=== PATIENT | male | born 1995 | race African-American/Black ===

== ENCOUNTER 2017-08-04 01:05 | Emergency (ER) | payer SELFPAY ==
[~2017-08-04] VITALS: Ht 165.1 cm; Wt 65.0 kg
[2017-08-04 01:15] VITALS: BP 138/69; PULSE 74; RESP 18; TEMP 97.9; O2SAT 99
[2017-08-04] MEDS ORDERED: BACT800T5 PO (02:53)
[2017-08-04] MEDS ORDERED: CEPH-460 PO (02:53)
--- NOTE | 2017-08-04 02:59 | PD ---
HPI Chief Complaint: Bite or Sting Time Seen by Provider: 02:48 Travel History International Travel<30 days: No Contact w/Intl Traveler<30days: No Traveled to known affect area: No History of Present Illness HPI 21-year-old black male presents to emergency department with complaints of a right shoulder spider bite. Over the past 4 days he has noted a sore open and start draining. He denies any history of any skin infections or spider bites in the past. He is up-to-date with immunizations. He denies any fever chills. PFSH Past Medical History Medical History: Denies Significant Hx Diminished Hearing: No Tetanus Vaccination: < 5 Years Influenza Vaccination: Yes Past Surgical History Surgical History: No Previous Surgery Social History Alcohol Use: No Tobacco Use: No Substance Use: Yes (clare) Allergies-Medications (Allergen,Severity, Reaction): Coded Allergies: No Known Allergies (Unverified , 08/04/17) Reported Meds & Prescriptions Reported Meds & Active Scripts Active Bactrim DS (Sulfamethoxazole-Trimethoprim) 800-160 Mg Tab 1 Tab PO BID Keflex (Cephalexin) 500 Mg Capsule 500 Mg PO Q6H 10 Days Review of Systems Except as stated in HPI: all other systems reviewed are Neg General / Constitutional: No: Fever, Chills Eyes: No: Diploplia, Blurred Vision HENT: No: Headaches, Vertigo Cardiovascular: No: Chest Pain or Discomfort Respiratory: No: Shortness of Breath Gastrointestinal: No: Abdominal Pain Genitourinary: No: Dysuria Musculoskeletal: Positive: Pain, No: Arthralgias, Limited ROM Skin: Positive Rash, Positive Lumps Neurologic: No: Weakness Psychiatric: No: Depression Endocrine: No: Polydipsia Hematologic/Lymphatic: No: Easy Bruising Physical Exam Narrative GENERAL: This is a well-nourished, well-developed patient, in no apparent distress. SKIN: There is a 2 x 2 centimeters erythematous open draining abscess to the right anterior shoulder. There is no fluctuance or pointing. The skin is indurated and tender. No involvement of the joint.. Warm and dry. HEAD: Atraumatic. Normocephalic. EYES: PERRL, EOMI, no discharge or injection. No scleral icterus. EARS: Clear NOSE: Nasal turbinates appear normal. THROAT: Mucosa pink and moist. Airway patent. NECK: Trachea midline. supple, moves head freely. LUNGS: Clear to auscultation. CV: Regular in rhythm. ABDOMEN: Soft nontender. EXT: No clubbing cyanosis or edema. Data Data Last Documented VS Vital Signs Date Time Temp Pulse Resp B/P (MAP) Pulse Ox O2 Delivery O2 Flow Rate FiO2 08/04/17 01:15 97.9 74 18 138/69 (92) 99 Orders Orders Cephalexin (Keflex) (08/04/17 03:00) Sulfamet-Trimeth Ds 800-160 Mg (Bactrim (08/04/17 03:00) Ed Discharge Order (08/04/17 02:53) MDM Medical Decision Making Medical Screen Exam Complete: Yes Emergency Medical Condition: Yes Medical Record Reviewed: Yes Differential Diagnosis MDM: High Differential diagnoses: Abscess, folliculitis, cellulitis, lymphangitis, abrasion, contact dermatitis Narrative Course Patient is given Keflex 500 and Bactrim DS. This is right shoulder abscess Diagnosis Primary Impression: Abscess of right shoulder Patient Instructions: General Instructions Additional Instructions: Rest. Elevation. keep clean and dry. Warm compresses. Black drawing salve. Daily wound care with soap, water and Neosporin. Three Advil every 6 hours. Bactrim DS and Keflex. Follow-up with a primary care doctor in one week. Return to the ER for any problems. Med/Other Pt SpecificInfo: Prescription(s) given, Wound Care Scripts Sulfamethoxazole-Trimethoprim (Bactrim DS) 800-160 Mg Tab 1 TAB PO BID for Infection, #20 TAB 0 Refills Prov: Elvin Thompson MD 08/04/17 Cephalexin (Keflex) 500 Mg Capsule 500 MG PO Q6H for Infection for 10 Days, #40 CAP 0 Refills Prov: Elvin Thompson MD 08/04/17 Disposition: 01 DISCHARGE HOME Condition: Stable Cristopher Ruth Aug 04, 2017 02:59
[2017-08-04] MEDS ORDERED: CEPHALEXIN MONOHYDRATE 500 MG CAP PO ONE (03:00)
[2017-08-04] MEDS ORDERED: SULFAMETHOXAZOLE-TRIMETHOPRIM DS 800-160 MG TAB PO ONE (03:00)
== END 2017-08-04 03:21 | disposition home or self-care (01) ==
LOC: NEPD 01:05
DX: L02.413 Cutaneous abscess of right upper limb (principal)
CPT/HCPCS: 99284